=== PATIENT | male | born 1935 | race Caucasian/White ===

== ENCOUNTER → 2021-03-19 | Outpatient (CLI) | payer MEDICARE ==
--- NOTE | 2021-03-19 13:14 | CT ---
EXAMINATION TYPE: CT abdomen pelvis wo con DATE OF EXAM: 03/19/2021 HISTORY: Hematuria, history of left-sided nephrectomy CT DLP: 703 mGycm. Automated Exposure Control for Dose Reduction was Utilized. TECHNIQUE: CT scan of the abdomen and pelvis is performed without oral or IV contrast. COMPARISON: NONE FINDINGS: Within the limitations of a non-contrast study, the following observations are made. LUNG BASES: Calcification at level of mitral valve. Mild bibasilar linear scarring and/or atelectasis . LIVER/GB: Gallbladder not seen presumed surgically absent.. PANCREAS: Moderate generalized fat replaced atrophy. SPLEEN: No significant abnormality is seen. ADRENALS: No significant abnormality is seen. KIDNEYS: Some cortical thinning and the single right kidney. There is exophytic 5.9 cm thin-walled cy st upper pole of the right kidney. There is exophytic 2.0 cm thin-walled cyst laterally right kidney midpole level. No right-sided renal calculi or hydronephrosis. Urinary bladder shows no intraluminal calculus. There is a small diverticulum along the left superior margin axial image 111. No obvious in traluminal mass. Mild eccentric wall thickening superior left aspect favored on the basis of enlarged prostate. BOWEL: Normal-appearing appendix from cecum. Diverticulosis in sigmoid colon. Terminal ileum appears within normal limits. No suspicious small or large bowel dilatation. Stomach poorly distended and th us suboptimally evaluated. GENITAL ORGANS: Enlarged prostate consistent with BPH. Central calcifications. LYMPH NODES: No greater than 1cm abdominal or pelvic lymph nodes are appreciated. OSSEOUS STRUCTURES: Posterior intrapedicular rods and screws transfix L4-L5 level. Multilevel facet a rthropathy mid to lower lumbar spine. [id number] axial joint space loss and spurring in both hi ps. OTHER: Mild to moderate calcified plaque of the aorta extends into branch vessels. Surgical changes l eft groin region. No recurrent hernia. IMPRESSION: Source of hematuria not identified. Enlarged prostate consistent with BPH. If symptoms re cur further investigation with contrast-enhanced CT would be advised.
== END | disposition home or self-care (01) ==
LOC: RADCTMAIN 09:39
PROVIDERS: ATTEND Urology
DX: R31.9 Hematuria, unspecified (principal); N40.0 Benign prostatic hyperplasia without lower urinary tract symptoms; Z90.5 Acquired absence of kidney
CPT/HCPCS: 74176